=== PATIENT | male | born 1980 | race Caucasian/White ===

== ENCOUNTER 2017-09-09 21:49 | Emergency (ER) | payer MEDICAID ==
[~2017-09-09] VITALS: Ht 165.1 cm; Wt 56.1 kg
[2017-09-09 21:57] VITALS: BP 137/81
== END 2017-09-09 22:43 | disposition home or self-care (01) ==
LOC: ED 22:35
DX: H66.002 Acute suppurative otitis media without spontaneous rupture of ear drum, left ear (principal)
CPT/HCPCS: 99283